=== PATIENT | male | born 1980 | race Hispanic/Latino ===

== ENCOUNTER 2019-12-03 12:49 | Inpatient (IN) | payer MEDICARE, BC ==
[~2019-12-03] VITALS: Ht 167.6 cm; Wt 113.4 kg
[2019-12-03 13:21] LABS: BASOPHILS % (AUTO) 0.8 % (0.0-5.0); EOSINOPHILS % (AUTO) 2.8 % (0.0-8.0); HEMATOCRIT 29.9 % (42-54); LYMPHOCYTES % (AUTO) 14.4 % (21.0-51.0); MEAN CORPUSCULAR HEMOGLOBIN 29.7 pg (27.0-33.0); MEAN CORPUSCULAR HGB CONC 33.1 g/dL (32.0-36.0); MEAN CORPUSCULAR VOLUME 89.8 fL (79-99); MONOCYTES % (AUTO) 13.8 % (3.0-13.0); NEUTROPHILS % (AUTO) 67.2 % (40.0-77.0); PLATELET COUNT (AUTO) 162 K/uL (130-400); RED BLOOD CELL COUNT(AUTO) 3.33 MIL/uL (4.50-6.20); RED CELL DISTRIBUTION WIDTH 14.3 % (11.0-15.5)
[2019-12-03 13:35] LABS: INR 1.11 (0.85-1.15); PARTIAL THROMBOPLASTIN TIME 30.1 SEC (26.3-35.5); PROTHROMBIN TIME 11.9 SEC (9.6-11.6)
[2019-12-03 13:41] LABS: CREATININE 2.4 mg/dL (0.5-1.5); POTASSIUM 4.9 mmol/L (3.5-5.1)
[2019-12-03 13:45] LABS: ALBUMIN 3.5 g/dL (3.5-5.0); BILIRUBIN,TOTAL 1.8 mg/dL (0.2-1.0); TOTAL PROTEIN, SERUM 7.3 g/dL (6.0-8.3)
[2019-12-03 13:57] LABS: B-TYPE NATRIURETIC PEPTIDE 277 pg/mL (0-100)
[2019-12-03 16:36] LABS: APPEARANCE,URINE Clear (CLEAR); BILIRUBIN,URINE Negative (NEGATIVE); COLOR,URINE Dark Yellow (YELLOW); GLUCOSE, URINE (UA) Negative (NEGATIVE); KETONES,URINE Negative (NEGATIVE); LEUKOCYTE ESTERASE ,URINE Negative (NEGATIVE); NITRATE,URINE Negative (NEGATIVE); OCCULT BLOOD,URINE Negative (NEGATIVE); PH,URINE 5.5 (5.0-8.0); PROTEIN,URINE POS 1+ mg/dL (NEGATIVE)
[2019-12-03 16:45] LABS: BACTERIA,URINE Rare /HPF (None Seen); RBC,URINE 0-1 /HPF (0-1); SQUAMOUS EPITHELIAL CELL,UR Rare /HPF (0-2); WBC,URINE 0-1 /HPF (0-1)
[2019-12-03] MEDS ORDERED: HYDRALAZINE HCL 20 MG/ML VIAL IV PRN (17:15)
[2019-12-03] MEDS ORDERED: ACETAMINOPHEN 325 MG TAB PO PRN (17:15)
[2019-12-03 18:11] LABS: CHOLESTEROL 126 mg/dL (<200); HDL CHOLESTEROL 69 mg/dL (29-71); LDL DIRECT 82 mg/dL (0-99); TRIGLYCERIDES 173 mg/dL (30-200)
[2019-12-03 18:12] LABS: HEMOGLOBIN A1C 7.1 % (4.0-6.0)
[2019-12-03] MEDS ORDERED: HYDRALAZINE HCL 20 MG/ML VIAL ONE (19:56)
[2019-12-03] MEDS: INSULIN HUMULIN R 100 UNIT/ML 3ML SQ SCH (21:00)
[2019-12-03] MEDS ORDERED: FAMOTIDINE 20MG TAB 20 MG TAB ONE (21:45)
[2019-12-03] MEDS ORDERED: MORPHINE SULFATE 2 MG/ML 1ML SYG ONE (21:45)
[2019-12-03 22:24] VITALS: BP 141/64
[2019-12-04] MEDS ORDERED: TACR1TAB PO (00:06)
[2019-12-04] MEDS ORDERED: MYCO250C7 PO (00:06)
[2019-12-04] MEDS ORDERED: MINO10TA3 PO (00:06)
[2019-12-04] MEDS ORDERED: LABE200T5 PO (00:06)
[2019-12-04] MEDS ORDERED: LOSA50TA64 PO (00:06)
[2019-12-04] MEDS ORDERED: TACR4TAB PO (00:06)
[2019-12-04] MEDS ORDERED: PANT40TA PO (00:06)
[2019-12-04] MEDS ORDERED: BUME2TAB5 PO (00:06)
[2019-12-04 04:00] VITALS: BP 140/73
[2019-12-04 05:02] LABS: BASOPHILS % (AUTO) 0.7 % (0.0-5.0); EOSINOPHILS % (AUTO) 1.6 % (0.0-8.0); HEMATOCRIT 28.4 % (42-54); LYMPHOCYTES % (AUTO) 13.2 % (21.0-51.0); MEAN CORPUSCULAR HEMOGLOBIN 29.7 pg (27.0-33.0); MEAN CORPUSCULAR HGB CONC 33.1 g/dL (32.0-36.0); MEAN CORPUSCULAR VOLUME 89.6 fL (79-99); MONOCYTES % (AUTO) 15.2 % (3.0-13.0); NEUTROPHILS % (AUTO) 67.7 % (40.0-77.0); PLATELET COUNT (AUTO) 155 K/uL (130-400); RED BLOOD CELL COUNT(AUTO) 3.17 MIL/uL (4.50-6.20); RED CELL DISTRIBUTION WIDTH 14.3 % (11.0-15.5); WHITE BLOOD COUNT (AUTO) 5.5 K/uL (4.8-10.8)
[2019-12-04 05:26] LABS: CREATININE 2.6 mg/dL (0.5-1.5)
[2019-12-04] MEDS: INSULIN HUMULIN R 100 UNIT/ML 3ML SQ SCH ×4 (05:44→21:00)
[2019-12-04] MEDS: ASPIRIN 81MG TAB.CHEW PO SCH (08:32)
[2019-12-04] MEDS: FAMOTIDINE 20MG TAB 20 MG TAB PO SCH (08:32)
[2019-12-04] MEDS: FOLIC ACID/VITAMIN B COMP W-C 1 CAP TAB PO SCH (08:33)
[2019-12-04 09:20] VITALS: BP 131/79
[2019-12-04] MEDS: ENOXAPARIN SODIUM 40 MG/0.4 ML SYRINGE SQ SCH (09:48)
[2019-12-04 12:33] VITALS: BP 130/83
--- NOTE | 2019-12-04 17:13 | NUR ---
cm note spoke to pt and states resides at home with spouse, independent with ambulation and adls. pt has nebulizer and cpap at . pt drives. dc plan is back to home at time of dc states no dc needs. Addendum: 12/04/19 at 1718 by HAILEY SALAZAR CM Amended: Links added.
[2019-12-04 18:38] VITALS: BP 112/73
[2019-12-04 21:09] VITALS: BP 115/73
[2019-12-04] MEDS: LABETALOL HCL 200 MG TABLET PO SCH (21:29)
[2019-12-04] MEDS: MYCOPHENOLATE MOFETIL 250 MG CAPSULE PO SCH (21:29)
[2019-12-04] MEDS: MORPHINE SULFATE 2 MG/ML 1ML SYG IV PRN (21:45)
[2019-12-05] VITALS (7 sets, daily range): BP systolic 88–124; BP diastolic 49–87
--- NOTE | 2019-12-05 00:01 | NUR ---
Pt had fever at start of shift, 101.6; pt administered 650mg Tylenol and temperature rechecked at this time =98.6; no distress noted and pt is resting in bed with eyes closed, CPAP in place; Javi RN
[2019-12-05 01:11] LABS: APPEARANCE,URINE Clear (CLEAR); BILIRUBIN,URINE Small (NEGATIVE); COLOR,URINE Dark Yellow (YELLOW); GLUCOSE, URINE (UA) Negative (NEGATIVE); KETONES,URINE Negative (NEGATIVE); LEUKOCYTE ESTERASE ,URINE Negative (NEGATIVE); NITRATE,URINE Negative (NEGATIVE); OCCULT BLOOD,URINE Negative (NEGATIVE); PROTEIN,URINE Negative (NEGATIVE)
[2019-12-05 01:21] LABS: BACTERIA,URINE Rare /HPF (None Seen); RBC,URINE None Seen /HPF (0-1); SQUAMOUS EPITHELIAL CELL,UR Few /HPF (0-2); WBC,URINE None Seen /HPF (0-1)
[2019-12-05 03:16] LABS: BASOPHILS % (AUTO) 0.5 % (0.0-5.0); EOSINOPHILS % (AUTO) 1.6 % (0.0-8.0); HEMATOCRIT 28.4 % (42-54); LYMPHOCYTES % (AUTO) 11.1 % (21.0-51.0); MEAN CORPUSCULAR HEMOGLOBIN 29.8 pg (27.0-33.0); MEAN CORPUSCULAR HGB CONC 33.1 g/dL (32.0-36.0); MEAN CORPUSCULAR VOLUME 90.2 fL (79-99); MONOCYTES % (AUTO) 13.7 % (3.0-13.0); NEUTROPHILS % (AUTO) 72.5 % (40.0-77.0); PLATELET COUNT (AUTO) 150 K/uL (130-400); RED BLOOD CELL COUNT(AUTO) 3.15 MIL/uL (4.50-6.20); RED CELL DISTRIBUTION WIDTH 14.2 % (11.0-15.5); WHITE BLOOD COUNT (AUTO) 6.3 K/uL (4.8-10.8)
[2019-12-05 03:32] LABS: ALBUMIN 3.3 g/dL (3.5-5.0); BILIRUBIN,TOTAL 2.1 mg/dL (0.2-1.0); CREATININE 2.5 mg/dL (0.5-1.5); POTASSIUM 4.9 mmol/L (3.5-5.1); TOTAL PROTEIN, SERUM 7.2 g/dL (6.0-8.3)
[2019-12-05] MEDS: INSULIN HUMULIN R 100 UNIT/ML 3ML SQ SCH ×5 (06:04→21:00)
--- NOTE | 2019-12-05 06:22 | NUR ---
0608 - Dr Blancas returned page and informed of pts BP = 86/58; physician stated to contact the hospitalist to contact cardiology. Javi, RN [id number] - Althea Avila returned page and informed of pts BP = 86/58; INFANT CHILDCARE PROVIDER ordered Midodrine 2.5mg x1 at this time. Javi RN
[2019-12-05] MEDS ORDERED: MIDODRINE HCL 5 MG TABLET PO SCH (06:30)
[2019-12-05] MEDS: LOSARTAN 50 MG TABLET PO SCH (07:38)
[2019-12-05] MEDS: FOLIC ACID/VITAMIN B COMP W-C 1 CAP TAB PO SCH (08:11)
[2019-12-05] MEDS: FAMOTIDINE 20MG TAB 20 MG TAB PO SCH (08:11)
[2019-12-05] MEDS: ENOXAPARIN SODIUM 40 MG/0.4 ML SYRINGE SQ SCH (08:11)
[2019-12-05] MEDS: ASPIRIN 81MG TAB.CHEW PO SCH (08:12)
[2019-12-05] MEDS: LABETALOL HCL 200 MG TABLET PO SCH ×2 (08:24→21:00)
[2019-12-05] MEDS: TACROLIMUS PO SCH (08:26)
[2019-12-05] MEDS: ENVARSUS 1 MG PO SCH (08:26)
[2019-12-05] MEDS: MYCOPHENOLATE MOFETIL 250 MG CAPSULE PO SCH ×2 (08:27→21:00)
--- NOTE | 2019-12-05 11:56 | NUR ---
Patient transferred to [facility] due to kidney transplant status and Pending COVID result. Patient has been tested multiple times in the recent days and has been negative. Transfer approved by administration. Pt transferred by store receiver
--- NOTE | 2019-12-05 12:00 | NUR ---
DR. KWON HERE , FOR RESP CARE. SPOKE WITH PT. CARE.
[2019-12-05] MEDS: INSULIN GLARGINE 100 UNITS/ML 10 ML VIAL SQ SCH (21:29)
[2019-12-05] MEDS: MORPHINE SULFATE 2 MG/ML 1ML SYG IV PRN (21:36)
[2019-12-06] MEDS: ACETAMINOPHEN 325 MG TAB PO PRN ×2 (02:16→20:11)
[2019-12-06 04:00] VITALS: BP 129/64
[2019-12-06 05:11] LABS: BASOPHILS % (AUTO) 0.5 % (0.0-5.0); EOSINOPHILS % (AUTO) 1.6 % (0.0-8.0); HEMATOCRIT 28.9 % (42-54); MEAN CORPUSCULAR HGB CONC 33.6 g/dL (32.0-36.0); MEAN CORPUSCULAR VOLUME 89.5 fL (79-99); MONOCYTES % (AUTO) 12.4 % (3.0-13.0); NEUTROPHILS % (AUTO) 73.7 % (40.0-77.0); PLATELET COUNT (AUTO) 157 K/uL (130-400); RED BLOOD CELL COUNT(AUTO) 3.23 MIL/uL (4.50-6.20); WHITE BLOOD COUNT (AUTO) 7.4 K/uL (4.8-10.8)
[2019-12-06 05:34] LABS: CREATININE 2.4 mg/dL (0.5-1.5); POTASSIUM 4.9 mmol/L (3.5-5.1)
[2019-12-06] MEDS: INSULIN HUMULIN R 100 UNIT/ML 3ML SQ SCH ×7 (06:06→21:00)
[2019-12-06 07:45] VITALS: BP 113/66
[2019-12-06 08:30] LABS: CRP QUANTITATIVE 97.4 mg/L (0.00-9.0)
[2019-12-06] MEDS: ENVARSUS 1 MG PO SCH (09:00)
[2019-12-06] MEDS: MYCOPHENOLATE MOFETIL 250 MG CAPSULE PO SCH ×3 (09:00→20:16)
[2019-12-06] MEDS: TACROLIMUS PO SCH (09:00)
[2019-12-06] MEDS: ASPIRIN 81MG TAB.CHEW PO SCH (09:58)
[2019-12-06] MEDS: FAMOTIDINE 20MG TAB 20 MG TAB PO SCH (09:58)
[2019-12-06] MEDS: FOLIC ACID/VITAMIN B COMP W-C 1 CAP TAB PO SCH (09:58)
[2019-12-06] MEDS: LOSARTAN 50 MG TABLET PO SCH (09:59)
[2019-12-06] MEDS: LABETALOL HCL 200 MG TABLET PO SCH ×2 (10:01→20:11)
[2019-12-06] MEDS: ENOXAPARIN SODIUM 40 MG/0.4 ML SYRINGE SQ SCH (10:02)
[2019-12-06 11:00] VITALS: BP 118/72
[2019-12-06] MEDS: ZOSYN 3.375GM+NS 50ML 50 ML IV SCH (15:09)
[2019-12-06 16:00] VITALS: BP 90/39
[2019-12-06 17:43] VITALS: BP 135/74
[2019-12-06] MEDS: BUMETANIDE 1 MG TAB PO SCH (20:11)
[2019-12-06 20:16] VITALS: BP 129/87
[2019-12-06] MEDS: INSULIN GLARGINE 100 UNITS/ML 10 ML VIAL SQ SCH (21:18)
--- NOTE | 2019-12-06 22:00 | NUR ---
SHOWERED Pt took a shower,vivian well.
[2019-12-07] MEDS: ZOSYN 3.375GM+NS 50ML 50 ML IV SCH ×3 (00:04→23:48)
[2019-12-07 00:16] VITALS: BP 110/65
--- NOTE | 2019-12-07 03:18 | NUR ---
CPAP Pt wears cpap from home,no distress noted.
[2019-12-07 04:16] VITALS: BP 113/69
[2019-12-07 05:02] LABS: BASOPHILS % (AUTO) 0.8 % (0.0-5.0); EOSINOPHILS % (AUTO) 1.4 % (0.0-8.0); HEMATOCRIT 28.6 % (42-54); LYMPHOCYTES % (AUTO) 8.6 % (21.0-51.0); MEAN CORPUSCULAR HEMOGLOBIN 30.2 pg (27.0-33.0); MEAN CORPUSCULAR HGB CONC 33.9 g/dL (32.0-36.0); MEAN CORPUSCULAR VOLUME 89.1 fL (79-99); MONOCYTES % (AUTO) 13.6 % (3.0-13.0); NEUTROPHILS % (AUTO) 74.5 % (40.0-77.0); PLATELET COUNT (AUTO) 153 K/uL (130-400); RED BLOOD CELL COUNT(AUTO) 3.21 MIL/uL (4.50-6.20); WHITE BLOOD COUNT (AUTO) 7.2 K/uL (4.8-10.8)
[2019-12-07 05:30] LABS: ALBUMIN 3.2 g/dL (3.5-5.0); CREATININE 2.3 mg/dL (0.5-1.5); CRP QUANTITATIVE 95.4 mg/L (0.00-9.0); POTASSIUM 4.8 mmol/L (3.5-5.1); TOTAL PROTEIN, SERUM 7.2 g/dL (6.0-8.3)
[2019-12-07] MEDS: INSULIN HUMULIN R 100 UNIT/ML 3ML SQ SCH ×5 (06:18→21:00)
[2019-12-07 08:00] VITALS: BP 121/76
--- NOTE | 2019-12-07 08:00 | NUR ---
PT AAO X 3 REVIEW PLAN OF CARE , DENIES ANY SOB. ON HIS OWN CPAP MASK CALL LIGHT IN REACH.
[2019-12-07] MEDS: TACROLIMUS PO SCH (09:00)
[2019-12-07] MEDS: PANTOPRAZOLE SODIUM 40 MG TABLET.DR PO SCH (09:00)
[2019-12-07] MEDS: ENVARSUS 1 MG PO SCH (09:00)
[2019-12-07] MEDS: MYCOPHENOLATE MOFETIL 250 MG CAPSULE PO SCH ×2 (09:00→20:43)
[2019-12-07] MEDS: ASPIRIN 81MG TAB.CHEW PO SCH (09:38)
[2019-12-07] MEDS: FOLIC ACID/VITAMIN B COMP W-C 1 CAP TAB PO SCH (09:38)
[2019-12-07] MEDS: LABETALOL HCL 200 MG TABLET PO SCH ×2 (09:39→20:37)
[2019-12-07] MEDS: FAMOTIDINE 20MG TAB 20 MG TAB PO SCH (09:40)
[2019-12-07] MEDS: BUMETANIDE 1 MG TAB PO SCH ×2 (09:40→20:37)
[2019-12-07] MEDS: LOSARTAN 50 MG TABLET PO SCH (09:41)
[2019-12-07] MEDS: ENOXAPARIN SODIUM 40 MG/0.4 ML SYRINGE SQ SCH (09:43)
[2019-12-07 12:00] VITALS: BP 123/90
[2019-12-07 14:11] LABS: HEPATITIS A ANTIBODY IGM Negative (Negative); HEPATITIS B CORE IGM Negative (Negative); HEPATITIS Bs ANTIGEN SCREEN P Negative (Negative)
[2019-12-07 16:00] VITALS: BP 113/49
[2019-12-07 20:12] VITALS: BP 118/77
[2019-12-07] MEDS: ACETAMINOPHEN 325 MG TAB PO PRN (20:49)
[2019-12-08] VITALS (7 sets, daily range): BP systolic 109–129; BP diastolic 65–81
[2019-12-08 04:36] LABS: BASOPHILS % (AUTO) 1.1 % (0.0-5.0); EOSINOPHILS % (AUTO) 2.8 % (0.0-8.0); HEMATOCRIT 28.3 % (42-54); MEAN CORPUSCULAR HGB CONC 32.5 g/dL (32.0-36.0); MEAN CORPUSCULAR VOLUME 89.3 fL (79-99); MONOCYTES % (AUTO) 15.6 % (3.0-13.0); NEUTROPHILS % (AUTO) 67.5 % (40.0-77.0); PLATELET COUNT (AUTO) 159 K/uL (130-400); RED BLOOD CELL COUNT(AUTO) 3.17 MIL/uL (4.50-6.20); RED CELL DISTRIBUTION WIDTH 13.9 % (11.0-15.5); WHITE BLOOD COUNT (AUTO) 6.2 K/uL (4.8-10.8)
--- NOTE | 2019-12-08 05:02 | NUR ---
STATUS Pt resting quietly,respirations even and unlabored.Pt uses own CPap machine from home when he's asleep.No sob or distress noted.
[2019-12-08 05:04] LABS: ALBUMIN 3.1 g/dL (3.5-5.0); BILIRUBIN,TOTAL 1.9 mg/dL (0.2-1.0); CREATININE 2.5 mg/dL (0.5-1.5); CRP QUANTITATIVE 82.1 mg/L (0.00-9.0); POTASSIUM 4.6 mmol/L (3.5-5.1); TOTAL PROTEIN, SERUM 7.1 g/dL (6.0-8.3)
[2019-12-08] MEDS: INSULIN HUMULIN R 100 UNIT/ML 3ML SQ SCH ×4 (06:28→20:26)
[2019-12-08] MEDS: LABETALOL HCL 200 MG TABLET PO SCH ×2 (08:34→20:26)
[2019-12-08] MEDS: PANTOPRAZOLE SODIUM 40 MG TABLET.DR PO SCH (08:34)
[2019-12-08] MEDS: FAMOTIDINE 20MG TAB 20 MG TAB PO SCH (08:35)
[2019-12-08] MEDS: BUMETANIDE 1 MG TAB PO SCH ×2 (08:36→20:26)
[2019-12-08] MEDS: FOLIC ACID/VITAMIN B COMP W-C 1 CAP TAB PO SCH (08:36)
[2019-12-08] MEDS: LOSARTAN 50 MG TABLET PO SCH (08:37)
[2019-12-08] MEDS: MYCOPHENOLATE MOFETIL 250 MG CAPSULE PO SCH ×2 (08:37→20:26)
[2019-12-08] MEDS: ASPIRIN 81MG TAB.CHEW PO SCH (08:37)
[2019-12-08] MEDS: TACROLIMUS PO SCH (08:38)
[2019-12-08] MEDS: ENVARSUS 1 MG PO SCH (08:38)
[2019-12-08] MEDS: ENOXAPARIN SODIUM 40 MG/0.4 ML SYRINGE SQ SCH (08:41)
[2019-12-08] MEDS: ZOSYN 3.375GM+NS 50ML 50 ML IV SCH (13:40)
--- NOTE | 2019-12-08 14:12 | NUR ---
DR. PORTILLO PAGEHenok; RE; PERICARDIAL EFFUSION PENDING CALL BACK.
--- NOTE | 2019-12-08 14:17 | NUR ---
CANDICE RETURNED CALL;RE;REEVALUATION PER. EFFU. STATES WILL NOTIFY MIESHA OR DR. PORTILLO.
[2019-12-08] MEDS: ONDANSETRON HCL 4 MG/2 ML VIAL IV PRN ×2 (16:21→20:27)
--- NOTE | 2019-12-08 16:41 | NUR ---
as per Dr Boo already spoke w/ dr. manzanares states dr. Porter will see him in am.
--- NOTE | 2019-12-08 16:42 | NUR ---
pt c/o Nausea Zofran given iv.
[2019-12-08] MEDS: MORPHINE SULFATE 2 MG/ML 1ML SYG IV PRN (23:13)
[2019-12-09] VITALS (15 sets, daily range): BP systolic 108–140; BP diastolic 55–84
[2019-12-09] MEDS: ZOSYN 3.375GM+NS 50ML 50 ML IV SCH ×3 (00:15→23:39)
[2019-12-09 04:46] LABS: BASOPHILS % (AUTO) 0.8 % (0.0-5.0); EOSINOPHILS % (AUTO) 2.9 % (0.0-8.0); HEMATOCRIT 29.5 % (42-54); LYMPHOCYTES % (AUTO) 11.7 % (21.0-51.0); MEAN CORPUSCULAR HEMOGLOBIN 29.9 pg (27.0-33.0); MEAN CORPUSCULAR HGB CONC 33.6 g/dL (32.0-36.0); MEAN CORPUSCULAR VOLUME 89.1 fL (79-99); MONOCYTES % (AUTO) 14.4 % (3.0-13.0); NEUTROPHILS % (AUTO) 69.1 % (40.0-77.0); PLATELET COUNT (AUTO) 163 K/uL (130-400); RED BLOOD CELL COUNT(AUTO) 3.31 MIL/uL (4.50-6.20); RED CELL DISTRIBUTION WIDTH 13.7 % (11.0-15.5); WHITE BLOOD COUNT (AUTO) 6.3 K/uL (4.8-10.8)
[2019-12-09 05:19] LABS: ALBUMIN 3.2 g/dL (3.5-5.0); BILIRUBIN,TOTAL 2.2 mg/dL (0.2-1.0); CREATININE 2.8 mg/dL (0.5-1.5); CRP QUANTITATIVE 87.7 mg/L (0.00-9.0); POTASSIUM 4.5 mmol/L (3.5-5.1); TOTAL PROTEIN, SERUM 7.4 g/dL (6.0-8.3)
[2019-12-09] MEDS: INSULIN HUMULIN R 100 UNIT/ML 3ML SQ SCH ×4 (07:08→21:00)
[2019-12-09] MEDS: ENVARSUS 1 MG PO SCH (09:00)
[2019-12-09] MEDS: TACROLIMUS PO SCH (09:00)
[2019-12-09] MEDS: MYCOPHENOLATE MOFETIL 250 MG CAPSULE PO SCH ×2 (09:00→21:00)
[2019-12-09] MEDS: FAMOTIDINE 20MG TAB 20 MG TAB PO SCH (09:49)
[2019-12-09] MEDS: PANTOPRAZOLE SODIUM 40 MG TABLET.DR PO SCH (09:49)
[2019-12-09] MEDS: LOSARTAN 50 MG TABLET PO SCH (09:49)
[2019-12-09] MEDS: BUMETANIDE 1 MG TAB PO SCH ×2 (09:49→21:01)
[2019-12-09] MEDS: ASPIRIN 81MG TAB.CHEW PO SCH (09:49)
[2019-12-09] MEDS: FOLIC ACID/VITAMIN B COMP W-C 1 CAP TAB PO SCH (09:49)
[2019-12-09] MEDS: LABETALOL HCL 200 MG TABLET PO SCH ×2 (09:50→21:01)
[2019-12-09] MEDS ORDERED: LIDOCAINE HCL 2% 20ML ONE (12:52)
[2019-12-09] MEDS ORDERED: HEPARIN SODIUM 1000UNIT/ML 10ML VIAL ONE (12:52)
[2019-12-09] MEDS ORDERED: NITROGLYCERIN 2 MG/VIAL VIAL IV ONE (12:52)
[2019-12-09] MEDS ORDERED: IOHEXOL 350 MG/ML 100ML INFUS..BTL IV ONE (12:55)
--- NOTE | 2019-12-09 13:00 | NUR ---
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
[2019-12-09] MEDS ORDERED: ONDANSETRON HCL 4 MG/2 ML VIAL IVP SCH (19:00)
[2019-12-09] MEDS: LACTULOSE 20 GM/30 ML UDCUP PO PRN (21:04)
[2019-12-09] MEDS ORDERED: MAG HYDROX/AL HYDROX/SIMETH ES 30 ML SUSP UDCUP PO PRN (21:45)
[2019-12-09] MEDS: MORPHINE SULFATE 2 MG/ML 1ML SYG IV PRN (23:43)
[2019-12-10] VITALS: BP 157/63
[2019-12-10] MEDS ORDERED: NITROGLYCERIN 0.4 MG SL TAB SL PRN (02:30)
[2019-12-10 02:38] LABS: HEMATOCRIT 29.3 % (42-54); MEAN CORPUSCULAR HEMOGLOBIN 29.9 pg (27.0-33.0); MEAN CORPUSCULAR HGB CONC 34.1 g/dL (32.0-36.0); MEAN CORPUSCULAR VOLUME 87.5 fL (79-99); RED BLOOD CELL COUNT(AUTO) 3.35 MIL/uL (4.50-6.20); RED CELL DISTRIBUTION WIDTH 13.5 % (11.0-15.5); WHITE BLOOD COUNT (AUTO) 7.3 K/uL (4.8-10.8)
[2019-12-10 02:46] LABS: CREATININE 2.9 mg/dL (0.5-1.5); POTASSIUM 4.3 mmol/L (3.5-5.1)
[2019-12-10 02:57] LABS: CREATINE KINASE, TOTAL 60 U/L (21-232); MYOGLOBIN 82 ng/mL (10-92); TROPONIN I < 0.04 ng/mL (0.00-0.06)
[2019-12-10] MEDS ORDERED: LORAZEPAM 2 MG/ML 1 ML VIAL IVP ONE (03:15)
[2019-12-10] MEDS ORDERED: LORAZEPAM 2 MG/ML 1 ML VIAL ONE (03:20)
[2019-12-10 03:43] VITALS: BP 164/93
[2019-12-10] MEDS: INSULIN HUMULIN R 100 UNIT/ML 3ML SQ SCH ×4 (07:30→21:00)
[2019-12-10 08:16] VITALS: BP 153/89
[2019-12-10] MEDS: MYCOPHENOLATE MOFETIL 250 MG CAPSULE PO SCH ×2 (09:00→20:46)
[2019-12-10] MEDS: TACROLIMUS PO SCH (09:00)
[2019-12-10] MEDS: ENVARSUS 1 MG PO SCH (09:00)
[2019-12-10] MEDS: PANTOPRAZOLE SODIUM 40 MG TABLET.DR PO SCH (09:53)
[2019-12-10] MEDS: LABETALOL HCL 200 MG TABLET PO SCH ×2 (09:53→20:46)
[2019-12-10] MEDS: BUMETANIDE 1 MG TAB PO SCH ×2 (09:54→20:46)
[2019-12-10] MEDS: LOSARTAN 50 MG TABLET PO SCH (09:54)
[2019-12-10] MEDS: FAMOTIDINE 20MG TAB 20 MG TAB PO SCH (09:54)
[2019-12-10] MEDS: ASPIRIN 81MG TAB.CHEW PO SCH (09:54)
[2019-12-10] MEDS: FOLIC ACID/VITAMIN B COMP W-C 1 CAP TAB PO SCH (09:54)
[2019-12-10] MEDS: LACTULOSE 20 GM/30 ML UDCUP PO PRN ×2 (10:06→20:59)
--- NOTE | 2019-12-10 10:45 | NUR ---
RDSCREEN - LOS X 7 Pt admitted for Dyspnea, Pericardial effusion. Pt s/p heart Cath. Hx HTN, Kidney transplant. Pt tolerating Heart Healthy diet order, no report of GI distress, Fair to Good PO intake (75-100%). Pt napping on CPAP at time of call, as per RN. Pt with worsening renal labs. Recommend Renal non-dialysis diet modification RD to continue to monitor. Please notify as additional nutrition concerns arise. Thank you. Addendum: 12/10/19 at [address] Amended: Links added.
[2019-12-10 10:48] LABS: CREATINE KINASE, TOTAL 48 U/L (21-232); MYOGLOBIN 65 ng/mL (10-92); TROPONIN I < 0.04 ng/mL (0.00-0.06)
[2019-12-10 11:56] VITALS: BP 155/81
[2019-12-10] MEDS: ZOSYN 3.375GM+NS 50ML 50 ML IV SCH (13:14)
[2019-12-10] MEDS: MORPHINE SULFATE 2 MG/ML 1ML SYG IV PRN (15:18)
[2019-12-10 16:40] VITALS: BP 182/95
[2019-12-10 18:15] LABS: CREATINE KINASE, TOTAL 50 U/L (21-232); MYOGLOBIN 105 ng/mL (10-92); TROPONIN I < 0.04 ng/mL (0.00-0.06)
[2019-12-10 20:00] VITALS: BP 131/103
[2019-12-11] VITALS (7 sets, daily range): BP systolic 114–213; BP diastolic 71–107
--- NOTE | 2019-12-11 | NUR ---
ELEVATED BP 213/107 HR 85. ON RECHECK BP 216/105. PT COMPLAINS OF CHEST PRESSURE. ADMIN SUBLINGUAL NITROGLYCERIN PER MAR X1. PT REPORTS DECREASED CHEST PRESSURE. BP NOW 142/85 HR 85. ENCOURAGED PT TO CALL FOR ASSISTANCE COMMUNICATIONS REPRESENTATIVE LIGHT- VERBALIZED UNDERSTANDING. WILL CONT TO MONITOR.
[2019-12-11] MEDS: ZOSYN 3.375GM+NS 50ML 50 ML IV SCH ×2 (00:07→13:35)
--- NOTE | 2019-12-11 02:52 | NUR ---
NOTE PT REPORTS HE IS UNABLE TO SLEEP AND REQUESTING A SLEEPING AID. SLEEPING MEDICATION NOT AVAILABLE ON JUN. PAGED CHAIM, PENDING CALL BACK.
--- NOTE | 2019-12-11 04:01 | NUR ---
PRESIDENT CEO & FOUNDER RETURNED PAGE RECEVIED TELEPHONE ORDER FOR PRIYA- SEE MAR/ ORDERS. ADMIN TO PT. WILL CONT TO MONITOR.
[2019-12-11] MEDS ORDERED: ZOLPIDEM TARTRATE 5 MG TAB PO ONE (04:15)
[2019-12-11] MEDS ORDERED: ZOLPIDEM TARTRATE 5 MG TAB ONE (04:24)
[2019-12-11 05:12] LABS: HEMATOCRIT 31.3 % (42-54); MEAN CORPUSCULAR HEMOGLOBIN 29.9 pg (27.0-33.0); MEAN CORPUSCULAR HGB CONC 33.9 g/dL (32.0-36.0); MEAN CORPUSCULAR VOLUME 88.2 fL (79-99); PLATELET COUNT (AUTO) 157 K/uL (130-400); RED BLOOD CELL COUNT(AUTO) 3.55 MIL/uL (4.50-6.20); RED CELL DISTRIBUTION WIDTH 13.5 % (11.0-15.5); WHITE BLOOD COUNT (AUTO) 8.6 K/uL (4.8-10.8)
[2019-12-11 05:24] LABS: ALBUMIN 3.3 g/dL (3.5-5.0); BILIRUBIN,TOTAL 2.9 mg/dL (0.2-1.0); CREATININE 2.7 mg/dL (0.5-1.5); MAGNESIUM 1.5 mg/dL (1.80-2.40); PHOSPHORUS 3.7 mg/dL (2.5-4.9); POTASSIUM 4.1 mmol/L (3.5-5.1)
[2019-12-11 05:47] LABS: BAND NEUTROPHILS % (MANUAL) 14 % (0-2); BASOPHILS % (MANUAL) 1 % (0-2); EOSINOPHILS % (MANUAL) 1 % (1-6); LYMPHOCYTES % (MANUAL) 4 % (22-44); MAN.DIFF COMMENT-IMPRESSION MANUAL DIFFERENTIAL; MONOCYTES % (MANUAL) 11 % (2-9); SEGMENTED NEUTROPHILS % 69 % (40-70)
[2019-12-11] MEDS: INSULIN HUMULIN R 100 UNIT/ML 3ML SQ SCH ×4 (07:30→21:00)
[2019-12-11] MEDS: BUMETANIDE 1 MG TAB PO SCH ×2 (08:42→21:03)
[2019-12-11] MEDS: FAMOTIDINE 20MG TAB 20 MG TAB PO SCH (08:42)
[2019-12-11] MEDS: LOSARTAN 50 MG TABLET PO SCH (08:42)
[2019-12-11] MEDS: ASPIRIN 81MG TAB.CHEW PO SCH (08:42)
[2019-12-11] MEDS: FOLIC ACID/VITAMIN B COMP W-C 1 CAP TAB PO SCH (08:42)
[2019-12-11] MEDS: PANTOPRAZOLE SODIUM 40 MG TABLET.DR PO SCH (08:42)
[2019-12-11] MEDS: LABETALOL HCL 200 MG TABLET PO SCH ×2 (08:43→20:32)
[2019-12-11] MEDS: ENVARSUS 1 MG PO SCH (08:43)
[2019-12-11] MEDS: TACROLIMUS PO SCH (08:43)
[2019-12-11] MEDS: MYCOPHENOLATE MOFETIL 250 MG CAPSULE PO SCH ×2 (08:43→21:00)
[2019-12-11] MEDS: MAGNESIUM 2GM PREMIX 50ML 50 ML IV PRN (17:15)
--- NOTE | 2019-12-11 20:00 | NUR ---
NOTE PT C/O OF DISCOMFORT IN EPIGASTRIC REGION. REPORTS THAT IT COMES AND GOES FREQUENTLY THROUGHOUT THE DAY, BUT SEEMS TO INCREASE IN THE AFTERNOON TIME. NO INTERVENTIONS DONE AT THIS TIME.
[2019-12-11] MEDS: ACETAMINOPHEN 325 MG TAB PO PRN (20:41)
[2019-12-12] VITALS: BP 115/74
[2019-12-12] MEDS: ZOSYN 3.375GM+NS 50ML 50 ML IV SCH ×2 (00:18→12:43)
[2019-12-12] MEDS: ACETAMINOPHEN 325 MG TAB PO PRN ×2 (02:35→21:20)
--- NOTE | 2019-12-12 02:38 | NUR ---
NOTE PT C/O PAIN TO RLQ. STATES THAT WHEN HE HAD HIS KIDNEY TRANSPLANT HE HAD A COLLECTION OF FLUID IN THAT LOCATION, AND THAT PAIN IS SIMILAR TO WHEN THAT OCCURRED. PT ALSO STATES THAT PAIN OCCURS WHEN HE IS DEHYDRATED. WILL HAVE THE DR FOLLOW UP WITH THE PT TO ADDRESS HIS CONCERNS.
[2019-12-12 04:00] VITALS: BP 121/65
[2019-12-12 06:59] LABS: ALBUMIN 3.2 g/dL (3.5-5.0); BILIRUBIN,DIRECT 1.5 mg/dL (0.0-0.3); BILIRUBIN,TOTAL 2.9 mg/dL (0.2-1.0); CREATININE 2.6 mg/dL (0.5-1.5); POTASSIUM 4.3 mmol/L (3.5-5.1); TOTAL PROTEIN, SERUM 7.7 g/dL (6.0-8.3)
[2019-12-12] MEDS: INSULIN HUMULIN R 100 UNIT/ML 3ML SQ SCH ×4 (07:30→20:08)
[2019-12-12 08:00] VITALS: BP 116/68
[2019-12-12] MEDS: ASPIRIN 81MG TAB.CHEW PO SCH (08:49)
[2019-12-12] MEDS: PANTOPRAZOLE SODIUM 40 MG TABLET.DR PO SCH (08:49)
[2019-12-12] MEDS: LABETALOL HCL 200 MG TABLET PO SCH ×2 (08:49→20:02)
[2019-12-12] MEDS: FAMOTIDINE 20MG TAB 20 MG TAB PO SCH (08:49)
[2019-12-12] MEDS: MYCOPHENOLATE MOFETIL 250 MG CAPSULE PO SCH ×2 (08:50→20:02)
[2019-12-12] MEDS: LOSARTAN 50 MG TABLET PO SCH (08:50)
[2019-12-12] MEDS: FOLIC ACID/VITAMIN B COMP W-C 1 CAP TAB PO SCH (08:50)
[2019-12-12] MEDS: BUMETANIDE 1 MG TAB PO SCH ×2 (08:50→20:02)
[2019-12-12] MEDS: TACROLIMUS PO SCH (08:52)
[2019-12-12] MEDS: ENVARSUS 1 MG PO SCH (08:52)
[2019-12-12 11:51] VITALS: BP 117/85
[2019-12-12 16:00] VITALS: BP 131/93
[2019-12-12] MEDS: MAGNESIUM 2GM PREMIX 50ML 50 ML IV PRN (16:32)
[2019-12-12 20:00] VITALS: BP 139/84
[2019-12-13] VITALS (7 sets, daily range): BP systolic 113–149; BP diastolic 66–85
[2019-12-13] MEDS: ZOSYN 3.375GM+NS 50ML 50 ML IV SCH ×3 (00:08→23:23)
[2019-12-13] MEDS: ACETAMINOPHEN 325 MG TAB PO PRN ×2 (02:32→18:22)
[2019-12-13] MEDS: INSULIN HUMULIN R 100 UNIT/ML 3ML SQ SCH ×4 (05:28→20:32)
[2019-12-13] MEDS: MAGNESIUM 2GM PREMIX 50ML 50 ML IV PRN (06:08)
[2019-12-13 06:32] LABS: CREATININE 2.7 mg/dL (0.5-1.5); POTASSIUM 4.1 mmol/L (3.5-5.1)
[2019-12-13] MEDS: BUMETANIDE 1 MG TAB PO SCH ×2 (08:30→20:31)
[2019-12-13] MEDS: ASPIRIN 81MG TAB.CHEW PO SCH (08:30)
[2019-12-13] MEDS: FAMOTIDINE 20MG TAB 20 MG TAB PO SCH (08:31)
[2019-12-13] MEDS: FOLIC ACID/VITAMIN B COMP W-C 1 CAP TAB PO SCH (08:31)
[2019-12-13] MEDS: LOSARTAN 50 MG TABLET PO SCH (08:31)
[2019-12-13] MEDS: PANTOPRAZOLE SODIUM 40 MG TABLET.DR PO SCH (08:31)
[2019-12-13] MEDS: MYCOPHENOLATE MOFETIL 250 MG CAPSULE PO SCH ×2 (08:31→20:32)
[2019-12-13] MEDS: LACTULOSE 20 GM/30 ML UDCUP PO PRN (08:32)
[2019-12-13] MEDS: LABETALOL HCL 200 MG TABLET PO SCH ×2 (08:32→20:31)
[2019-12-13] MEDS: TACROLIMUS PO SCH (09:00)
[2019-12-13] MEDS: ENVARSUS 1 MG PO SCH (09:00)
--- NOTE | 2019-12-13 18:00 | NUR ---
PAIN pt c/o pain right upper quad pain notified physician
[2019-12-13] MEDS ORDERED: TRAMADOL HCL 50 MG TABLET PO PRN (18:30)
[2019-12-13] MEDS ORDERED: HYDROMORPHONE HCL 0.5 MG/0.5 ML ML IVP PRN (19:00)
[2019-12-13] MEDS ORDERED: LIDOCAINE 5% TOPICAL PATCH TP SCH (20:30)
[2019-12-14 03:54] VITALS: BP 107/72
[2019-12-14] MEDS: INSULIN HUMULIN R 100 UNIT/ML 3ML SQ SCH ×4 (05:26→20:50)
[2019-12-14 08:00] VITALS: BP 125/79
[2019-12-14] MEDS: BUMETANIDE 1 MG TAB PO SCH ×2 (08:53→20:46)
[2019-12-14] MEDS: FAMOTIDINE 20MG TAB 20 MG TAB PO SCH (08:53)
[2019-12-14] MEDS: FOLIC ACID/VITAMIN B COMP W-C 1 CAP TAB PO SCH (08:54)
[2019-12-14] MEDS: MYCOPHENOLATE MOFETIL 250 MG CAPSULE PO SCH ×2 (08:54→20:50)
[2019-12-14] MEDS: PANTOPRAZOLE SODIUM 40 MG TABLET.DR PO SCH (08:54)
[2019-12-14] MEDS: LABETALOL HCL 200 MG TABLET PO SCH ×2 (08:54→20:47)
[2019-12-14] MEDS: ASPIRIN 81MG TAB.CHEW PO SCH (08:54)
[2019-12-14] MEDS: LOSARTAN 50 MG TABLET PO SCH (08:54)
[2019-12-14] MEDS: ENVARSUS 1 MG PO SCH (09:00)
[2019-12-14] MEDS: TACROLIMUS PO SCH (09:00)
[2019-12-14] MEDS: LACTULOSE 20 GM/30 ML UDCUP PO PRN (09:18)
--- NOTE | 2019-12-14 11:55 | NUR ---
BPCI Letter given to patient
[2019-12-14 12:00] VITALS: BP 124/78
[2019-12-14] MEDS: ZOSYN 3.375GM+NS 50ML 50 ML IV SCH (12:26)
[2019-12-14 13:23] LABS: HEMATOCRIT 34.9 % (42-54); MEAN CORPUSCULAR HEMOGLOBIN 29.6 pg (27.0-33.0); MEAN CORPUSCULAR HGB CONC 33.5 g/dL (32.0-36.0); MEAN CORPUSCULAR VOLUME 88.4 fL (79-99); RED BLOOD CELL COUNT(AUTO) 3.95 MIL/uL (4.50-6.20); RED CELL DISTRIBUTION WIDTH 13.7 % (11.0-15.5); WHITE BLOOD COUNT (AUTO) 7.8 K/uL (4.8-10.8)
[2019-12-14 13:35] LABS: CREATININE 2.4 mg/dL (0.5-1.5); POTASSIUM 4.3 mmol/L (3.5-5.1)
[2019-12-14 13:37] LABS: PARTIAL THROMBOPLASTIN TIME 28.5 SEC (26.3-35.5); PROTHROMBIN TIME 10.8 SEC (9.6-11.6)
[2019-12-14 13:40] LABS: TOTAL PROTEIN, SERUM 7.5 g/dL (6.0-8.3)
[2019-12-14 16:00] VITALS: BP 112/69
--- NOTE | 2019-12-14 17:30 | NUR ---
DR. RAMIRES SPOKE TO DR. RAMIRES AND HE IS AWARE OF PT D-DIMER 3,[address] RAMIRES NO NEW ORDERS, MAY STILL BE D/C. PT HAS F/U APPT 11/28/19 @ 12:00N.
--- NOTE | 2019-12-14 17:50 | NUR ---
TONI SÁNCHEZ SPOKE TO TONI SÁNCHEZ REGARDING PT D-DIMER OF 3108. PT WILL NOT BE DISCHARGED TODAY
[2019-12-14 20:32] VITALS: BP 116/77
[2019-12-14 23:51] VITALS: BP 93/67
[2019-12-15] MEDS: ZOSYN 3.375GM+NS 50ML 50 ML IV SCH (00:16)
--- NOTE | 2019-12-15 03:44 | NUR ---
ACTIVITY Pt took a shower,Olman well.
[2019-12-15 03:56] VITALS: BP 115/70
[2019-12-15 04:25] LABS: HEMATOCRIT 34.2 % (42-54); MEAN CORPUSCULAR HEMOGLOBIN 29.6 pg (27.0-33.0); MEAN CORPUSCULAR HGB CONC 33.6 g/dL (32.0-36.0); MEAN CORPUSCULAR VOLUME 87.9 fL (79-99); RED BLOOD CELL COUNT(AUTO) 3.89 MIL/uL (4.50-6.20); RED CELL DISTRIBUTION WIDTH 13.6 % (11.0-15.5)
[2019-12-15 04:44] LABS: CREATININE 2.3 mg/dL (0.5-1.5); POTASSIUM 4.2 mmol/L (3.5-5.1)
[2019-12-15 04:49] LABS: ALBUMIN 2.9 g/dL (3.5-5.0); TOTAL PROTEIN, SERUM 7.3 g/dL (6.0-8.3)
[2019-12-15] MEDS: INSULIN HUMULIN R 100 UNIT/ML 3ML SQ SCH (06:17)
[2019-12-15 07:30] VITALS: BP 122/61
[2019-12-15] MEDS: TACROLIMUS PO SCH (09:00)
[2019-12-15] MEDS: ENVARSUS 1 MG PO SCH (09:00)
[2019-12-15] MEDS: LOSARTAN 50 MG TABLET PO SCH (09:36)
[2019-12-15] MEDS: BUMETANIDE 1 MG TAB PO SCH (09:37)
[2019-12-15] MEDS: FOLIC ACID/VITAMIN B COMP W-C 1 CAP TAB PO SCH (09:37)
[2019-12-15] MEDS: PANTOPRAZOLE SODIUM 40 MG TABLET.DR PO SCH (09:37)
[2019-12-15] MEDS: FAMOTIDINE 20MG TAB 20 MG TAB PO SCH (09:37)
[2019-12-15] MEDS: MYCOPHENOLATE MOFETIL 250 MG CAPSULE PO SCH (09:37)
[2019-12-15] MEDS: ASPIRIN 81MG TAB.CHEW PO SCH (09:37)
[2019-12-15] MEDS ORDERED: LABETALOL HCL 100 MG TABLET ONE (09:45)
[2019-12-15] MEDS: LABETALOL HCL 200 MG TABLET PO SCH (09:48)
--- NOTE | 2019-12-15 11:30 | NUR ---
DISCHARGED NOW USING TEACH BACK. VERBALIZES UNDERSTANDING OF ALL INST. GIVEN WILL FOLLOW UP WITH HIS DRNubia IN [place], ALSO PROVIDED FOLLOW UP APPT. WITH DR. CARPENTER AND DR. RAMIRES. SALINE LOCK AND HEART MONITOR REMOVED. WILL RESUME HOMEMEDS. BEFORE.
== END 2019-12-15 11:45 | disposition home or self-care (01) | DRG 286 ==
LOC: EDH 12:49 → EDHIP 17:12 → 4BH 21:35 → 3CH 12-05 11:52
PROVIDERS: ADMIT Internal Medicine; ATTEND Internal Medicine
PROC: 4A023N6 Measurement of Cardiac Sampling and Pressure, Right Heart, Percutaneous Approach (ICD-10-PCS; principal; 2019-12-09)
PROC: B2111ZZ Fluoroscopy of Multiple Coronary Arteries using Low Osmolar Contrast (ICD-10-PCS; 2019-12-09)
DX: I13.0 Hypertensive heart and chronic kidney disease with heart failure and stage 1 through stage 4 chronic kidney disease, or unspecified chronic kidney disease (principal); I50.33 Acute on chronic diastolic (congestive) heart failure; J18.9 Pneumonia, unspecified organism; J96.91 Respiratory failure, unspecified with hypoxia; T86.19 Other complication of kidney transplant; I31.3 Pericardial effusion (noninflammatory); E87.1 Hypo-osmolality and hyponatremia; Z68.41 Body mass index [BMI] 40.0-44.9, adult; E66.2 Morbid (severe) obesity with alveolar hypoventilation; Z94.0 Kidney transplant status; N17.9 Acute kidney failure, unspecified; I27.20 Pulmonary hypertension, unspecified; D64.9 Anemia, unspecified; E11.22 Type 2 diabetes mellitus with diabetic chronic kidney disease; I08.1 Rheumatic disorders of both mitral and tricuspid valves; I27.22 Pulmonary hypertension due to left heart disease; I27.23 Pulmonary hypertension due to lung diseases and hypoxia; B97.11 Coxsackievirus as the cause of diseases classified elsewhere; I50.82 Biventricular heart failure; Y83.0 Surgical operation with transplant of whole organ as the cause of abnormal reaction of the patient, or of later complication, without mention of misadventure at the time of the procedure; Z20.828 Contact with and (suspected) exposure to other viral communicable diseases; Z87.891 Personal history of nicotine dependence; Y92.89 Other specified places as the place of occurrence of the external cause; N18.9 Chronic kidney disease, unspecified
CPT/HCPCS: 36415; 71045; 71250; 74176; 76770; 78580; 80048; 80053; 80061; 80074; 80076; 81001; 82533; 82550; 82728; 82948; 83036; 83615; 83690; 83735; 83874; 83880; 84100; 84145; 84443; 84484; 85025; 85027; 85378; 85610; 85730; 86038; 86140; 86215; 86235; 86431; 86603; 86658; 86701; 86850; 86900; 86901; 87040; 87390; 87426; 93005; 93306; 93308; 93356; 93451; 93970; A9540; C1894; G0378; J0360; J1644; J1650; J1815; J2060; J2405; J2543; J3475; J3490; J7517; Q9967; U0003

== ENCOUNTER 2020-02-01 05:57 | Day surgery (SDC) | payer MEDICARE, BC ==
[~2020-02-01] VITALS: Ht 170.2 cm; Wt 111.1 kg
[~2020-02-01 05:57] MED LIST: CELLCEPT PO; ENVARSUS PO; LABE200T5 PO; Losartan Potassium PO; PANT40TA PO; TRINTELLIX PO
[2020-02-01] MEDS ORDERED: SODIUM CHLORIDE 0.9% 1000ML 1,000 ML IV ONE (06:21)
[2020-02-01 06:53] VITALS: BP 173/88
[2020-02-01] MEDS ORDERED: PROPOFOL 10 MG/ML 20ML VIAL IV ONE ×2 (07:11→07:15)
[2020-02-01] MEDS ORDERED: LIDOCAINE HCL 2% 20ML ONE (07:11)
[2020-02-01 07:25] VITALS: BP 170/77
== END 2020-02-01 07:48 | disposition home or self-care (01) ==
LOC: DAH 05:57 → ENDO 05:57
PROVIDERS: ATTEND Internal Medicine Gastroenterology
DX: K76.9 Liver disease, unspecified (principal); K31.89 Other diseases of stomach and duodenum; R12 Heartburn; I50.812 Chronic right heart failure; I13.0 Hypertensive heart and chronic kidney disease with heart failure and stage 1 through stage 4 chronic kidney disease, or unspecified chronic kidney disease; N18.4 Chronic kidney disease, stage 4 (severe); E66.01 Morbid (severe) obesity due to excess calories; Z79.899 Other long term (current) drug therapy; Z20.828 Contact with and (suspected) exposure to other viral communicable diseases
CPT/HCPCS: 43239; 88305; 88342; A4215; A4221; A4222; A4223; A4606; A4620; A4663; C9803; J2704 ×2; J3490; J7030; U0003